=== PATIENT | male | born 1990 | race African-American/Black ===

== ENCOUNTER 2016-11-27 16:30 | Emergency (ER) | payer SELFPAY ==
[2016-11-27] MEDS ORDERED: OPTIRAY 350 100 ML VIAL HMH IV ONE (16:31)
[2016-11-27] MEDS ORDERED: KETOROLAC 30 MG/ML VIAL ONE (17:44)
[2016-11-27] MEDS ORDERED: SODIUM CHLORIDE 0.9% 1,000 ML ONE (17:44)
== END 2016-11-27 20:31 | disposition home or self-care (01) ==
LOC: ER 16:30
DX: S39.011A Strain of muscle, fascia and tendon of abdomen, initial encounter (principal); M94.0 Chondrocostal junction syndrome [Tietze]; R19.7 Diarrhea, unspecified
CPT/HCPCS: 36415; 71020; 74177; 80053; 81001; 83690; 85025; 96361; 96374